=== PATIENT | male | born 1960 | race Caucasian/White ===

== ENCOUNTER 2020-05-24 05:56 | Day surgery (SDC) | payer SELFPAY ==
[2020-05-24] VITALS (11 sets, daily range): BP systolic 94–149; BP diastolic 61–83; PULSE 66–82; RESP 16–18; TEMP 35.8–36.6; O2SAT 91–99; BMI 36.2
[2020-05-24] MEDS: Lactated Ringers 1,000 ML 100 ML IV ×2 (06:43→09:31)
[2020-05-24 07:16] LABS: Bedside Glucose 226 mg/dL (70-110)
[2020-05-24] MEDS: Cefazolin 2 GM in 0.9% Normal Saline 100 ML IV (07:30)
--- NOTE | 2020-05-24 07:30 | RAD_ITS ---
STUDY: X-RAY - RIGHT ANKLE REASON FOR EXAM: ORIF fibular fracture. TECHNIQUE: 7 intraoperative images of the ankle. COMPARISON: None. FINDINGS: There is an intramedullary pin in the distal fibula transfixing a distal fibular diaphyseal fracture in anatomical alignment and position. There is syndesmotic fixation. Electronically Signed: Bharat Phillip MD at 12:39 EDT Tel , Service support , RAD/Ankle 2 Views
--- NOTE | 2020-05-24 10:34 | DCINST_ITS ---
Discharge Diet: Light diet - advance as tolerated Discharge Activity: May Not Drive, May Not Shower, Use Walker, Use Crutches Weight Bearing Status: No weight bearing Keep extremity elevated above heart level: Right Leg Additional Activity Instructions:: 1.) Keep dressing to right leg clean, dry and intact. Do not get dressing wet. Do not remove dressing. If get dressing wet, call office for further instructions. 2.) ice around right knee 30 minutes every hour while awake as needed for pain. 3.) elevate right foot above level of heart as often as possible until further instructed. 4.) begin takin doxycycline (antibiotic) tomorrow, 05/25/20, one pill twice a day as instructed on the bottle. 5.) begin takin aspirin 81mg tomorrow, 05/25/20, one pill twice a day as previously instructed. 6.) begin taking pain medication that was prescribed to you starting today, 05/24/20, as needed and as instructed on the bottle. 7.) no walking/standing/placing and weight on right foot. Use crutches for assistance. 8.) follow up with Dr. Quiroz in one week as previously scheduled Call your doctor if your incision/area has: Increased Pain/ Swelling Call your doctor if you observe: Fever of 101 or Higher, Coldness, Increased Pain, Inability to have a bowel movement, Chest pain, Increased palpitations (irregular heartbeat), Calf discomfort, Uncontrolled pain Cleanse incision/area with: Keep Dressing Clean & Dry Allergies/Adverse Reactions: Allergies No Known Allergies Allergy (Verified 05/18/20 14:45) Medications to take at Discharge Aspirin E.C. [Ecotrin] 162 mg PO DAILY@0800 05/18/20 Atorvastatin Calcium [Lipitor] 80 mg PO QHS 05/18/20 Glipizide 5 mg PO DAILY 05/18/20 Metformin HCl 2,000 mg PO DAILY 05/18/20 Pioglitazone [Actos] 45 mg PO DAILY 05/18/20 Primary Care Physician: Isabella Quiroz MD [Primary Care Provider] - Test Results: Test results from this visit will be discussed in further detail at your follow- up appointment, if applicable. Please Follow Up With: Estrada Quiroz DPM When: in one week as previously scheduled
--- NOTE | 2020-05-24 10:37 | OP.PCM_ITS ---
Problem List (1) Closed right fibular fracture Status: Acute Qualifiers: Encounter type: initial encounter Fibula location: shaft Fracture morphology: transverse Fracture alignment: displaced Qualified Code(s): S82.421A - Displaced transverse fracture of shaft of right fibula, initial encounter for closed fracture (2) Ankle syndesmosis disruption Status: Acute Qualifiers: Encounter type: initial encounter Laterality: right Qualified Code(s): S93.431A - Sprain of tibiofibular ligament of right ankle, initial encounter Report of Operation Date of Procedure: 05/24/20 Pre-Operative Diagnosis: 1.) right fibula shaft fracture, displaced. 2.) right ankle syndesmosis disruption Post-Operative Diagnosis: 1.) right fibula shaft fracture, displaced. 2.) right ankle syndesmosis disruption Surgery/Procedure Performed:: 1.) right fibula open reduction with internal fixation. 2.) right syndesmosis open reduction with internal fixation Description of Surgical Findings:: Consistent with diagnosis. Reduction of deformities achieved and held with internal fixation veterinary assistant: Assist,RN First Type of Anesthesia:: General/Regional - a popliteal and adductor canal block given to right lower extremity pre-operatively Anesthesiologist: Yusuf Aleman Special Medications: 2 grams of ancef given pre-operatively for antibiotic prophylaxis Specimen's removed: None Drains: None Estimated Blood Loss (mL): 15 Description of Procedure: Hemostasis: Pneumatic thigh tourniquet placed at the level of the right thigh at 275 mmHg for 105 minutes Materials: Arthrex right sided fibula nail 3.0 x 180 mm 2. Arthrex 2.7 x 60 mm cortical screw. 3. Arthrex 2.7 x 40 mm cortical screw. 4. Arthrex tight rope. 5. Size 0 Vicryl. 6. Size 2-0 Vicryl. #7 size 3-0 nylon Injectables: None Complications: None Condition: Stable Indications: Patient is a 59-year-old male with past medical history of diabetes mellitus who suffered a right lower extremity injury on May 14, 2020. Patient was at work when a log rolled into his right leg. Patient felt immediate pain after the injury, but did not seek medical attention. Due to the continued pain with weightbearing, patient presented to his chiropractor on May 15, 2020. At that time, x-rays were taken, revealing a fibular fracture and ankle ligamentous injury. Patient was then referred to orthopedics for further evaluation. Patient initially saw VIJAY Jaimes for evaluation. She then referred to me for further evaluation. After reviewing the films, I discussed with the patient that he did have a displaced fibular shaft fracture along with a syndesmosis injury. I discussed these terms in detail along with the nature of his condition. I discussed conservative therapy, the risks and benefits to that. I discussed surgical intervention, including repair of the ligamentous structures and the fibular fracture. I discussed the risks and benefits of surgical intervention, including but not limited to delayed or nonhealing wounds, delayed or nonhealing bone, DVT, infection, decreased function of limb, continued pain, damage to surrounding structures, loss of limb, loss of life. Furthermore, since the patient is a diabetic, he is at a high risk for postoperative complications. All the patient's questions were answered to his satisfaction and all of his concerns were addressed. No guarantees were made as to the outcome of the procedure. Patient understood all aspects of the procedure. Due to the injury that was present, I did recommend surgical intervention. Patient was agreeable to proceed with surgical intervention. Preoperative testing was ordered, and surgery was performed today, May 24, 2020. Operative Report: Before the patient was brought into the operating room, the risks and benefits fo surgical intervention were discussed again. ll the patient's questions were answered to his satisfaction and all of his concerns were addressed. No guarantees were made as to the outcome of the procedure. Patient understood all aspects of the procedure. Before the patient brought to the operating room, the anesthesiologist administered a popliteal and adductor canal block to the right lower extremity. Patient was then brought to the operative room placed on the operating table in supine position. After timeout, once general anesthesia was obtained, 2 g of Ancef was given for preoperative antibiotics. Anesthesia to control the airway and the IV access. All pressure points were adequately padded. Next, well-padded pneumatic thigh tourniquet was placed the level of the right thigh. The right foot, ankle, leg were then scrubbed, prepped, draped in the usual sterile manner. At this time, radiograph evaluation was used to determine the level of the fibular fracture, ankle joint, syndesmosis, and distal lateral malleolus. These were all marked on the patient. Next, the right foot, ankle, leg were then elevated and exsanguinated via Esmarch inflation pneumatic thigh tourniquet was performed to 275 mmHg. Attention was then directed to the lateral aspect of the fibula and the area of the fibular fracture. At this time, a linear longitudinal incision was made approximately 2 cm in length at the level of the fibular fracture. Sharp and blunt dissection was continued down deep to the level of the bone, with the periosteum was reflected off revealing the fibular fracture. Next, a curette along with an dental pick were used to remove any fibrous tissue and hematoma contained within the area. The surgical site was irrigated with copious amounts of normal sterile saline. Next, the fibular fracture was reduced and held via temporary fixation. Radiograph evaluation was then performed. Satisfactory alignment was noted of the fibular fracture. Attention was then directed to the area 1 cm approximately distal to the lateral malleolus. At this time, the K wire for the fibular nail was inserted through t he distal aspect the lateral malleolus of the fibular shaft past the fibular fracture. Once adequate positioning was had of this K wire and confirmed upon radiographic evaluation, appropriate drilling and reaming was performed of the fibular canal. Next, a stab incision was made at the level of the junction with the fibular nail would go distal to the lateral malleolus. The fibular nail was then inserted in standard fashion with care taken to make sure that this was pass the fibular fracture. Once adequate positioning of the nail was had and confirmed on radiographic evaluation, 2 stab incisions were made at the lateral aspect of the lateral malleolus for the 2.7 locking screws. These locking screws were inserted in standard fashion to avoid rotation of the fibular nail. Position of the screws was confirmed upon radiographic evaluation. At this time, the cotton and hook test were performed under live radiographic evaluation. The syndesmosis was deemed unstable at this time. Next, the K wire for the cannulated thyroid system was passed from lateral to medial through the fibula, fibular nail, into the tibia. Positioning of this K wire was confirmed by radiograph evaluation. Once positioning was had, stab incision was made at the level of the K wire skin juncture. Drilling was performed of the fibula and the tibia, and the tight rope was inserted in standard fashion. Once this was fully inserted and confirmed upon radiograph evaluation, the foot was held in a dorsiflexed position and reduction of the tibiofibular distal joint was performed. The tight rope was tightened in appropriate fashion. Once adequate tensioning was had, radiograph evaluation was then performed. An increase in the tibiofibular overlap was noted at this time. Next, live radiograph evaluation was used to perform the stress eversion test to assess the deltoid ligament. The deltoid ligament was deemed stable at this time and repair would not be necessary. Radiograph evaluation was then performed, and the fibular fracture was noted to be reduced when compared to preoperative assessment. The fibular nail was noted to be in adequate position in the medullary canal of the fibula was noted to hold the fibula in the corrected position. An increase in the tibiofibular overlap was noted, and the tight rope was noted to hold the syndesmosis in the corrected reduced position. The fibula appeared out to length at this time. Each surgical site is irrigated copious amounts of irrisept and normal sterile saline. The pneumatic thigh tourniquet was then released and a prompt hyperemic response noted to the entirety of the right lower extremity. The subcutaneous tissues of the surgical sites were reapproximated coapted utilizing size 0 Vicryl and 2-0 Vicryl. The skin of each surgical site was reapproximated coapted utilizing 3-0 nylon in a simple interrupted horizontal mattress fashion. Each surgical site was then dressed with Betadine soaked gauze, and a dry sterile dressing setting of 4 x 4 gauze, ABD pads, wrapped with Kerlix. The right foot and ankle were then wrapped with an Bulmaro bandage. Next, a stockinette was placed over the right lower extremity. Cast padding was wrapped in the metatarsal heads extending proximally to level just distal to the tibial tuberosity. A posterior splint was fashioned to the right lower extremity and was adhered to the right lower extremity utilizing Bulamro bandages. Care was taken make sure that the foot and ankle held in neutral position as the posterior splint dried. Neurovascular status was assessed at the end the application and deemed intact to the right lower extremity. Patient tolerated the anesthesia procedure well and was transported to the PACU vital signs stable neurovascular status intact to the right lower extremity. After period of postoperative monitoring, patient be discharged home with written and oral instructions for wound care and follow-up. - Complications None - Admit VTE Documentation VTE Present on Admission: No - patient to begin ASA 81mg BID on 05/25/20 for DVT prophylaxis VTE Mechan Device Prophylaxis: SCD's
[2020-05-24 11:01] LABS: Bedside Glucose 261 mg/dL (70-110)
--- NOTE | 2020-05-24 11:35 | RAD_ITS ---
STUDY: X-RAY - RIGHT ANKLE REASON FOR EXAM: ORIF right ankle fracture. TECHNIQUE: 3 view(s) of the ankle. COMPARISON: None. FINDINGS: There is an intramedullary pin transfixing a distal fibular diaphyseal fracture in anatomic alignment and position. There is syndesmotic fixation. Normal tibiotalar articulation and ankle mortise. Normal visualized talus and calcaneus. The visualized subtalar, talonavicular, calcaneocuboid and tarsal articulations are normal. There is an overlying cast. RAD/Ankle min 3 Views IMPRESSION: ORIF of distal fibular fracture and syndesmotic fixation. Electronically Signed: Bharat Phillip MD at 12:38 EDT Tel , Service support ,
--- NOTE | 2020-05-24 11:35 | RAD_ITS ---
STUDY: X-RAY - RIGHT TIBIA AND FIBULA REASON FOR EXAM: Status post ORIF right ankle fracture. TECHNIQUE: 2 view(s) of the tibia and fibula were obtained. COMPARISON: None. FINDINGS: There is a chronic appearing corticated osseous fragment at the lateral aspect of the tibial plateau, a suspected Segond fracture. There is an intramedullary pin transfixing a distal fibular diaphyseal fracture in anatomical alignment and position. There is a minimally displaced fracture of the proximal fibular diaphysis. There is soft tissue swelling. RAD/Tibia & Fibula 2 Views IMPRESSION: Intramedullary pin transfixing a distal fibular diaphyseal fracture and minimally displaced proximal fibular diaphyseal fracture. Suspected chronic Segond fracture. Electronically Signed: Bharat Phillip MD at 12:38 EDT Tel , Service support ,
[2020-05-24] MEDS: Insulin Lispro 100 UNIT/ML INSULN.PEN SC (11:56)
[2020-05-24 12:30] LABS: Bedside Glucose 232 mg/dL (70-110)
== END 2020-05-24 13:58 | disposition home or self-care (01) ==
LOC: SDC 06:03 → AC 06:03
PROVIDERS: PCP Family Medicine; Referring Provider Podiatrist Foot & Ankle Surgery; Visit Provider Podiatrist Foot & Ankle Surgery
PROC: (CPT 27792; principal; 2020-05-24 07:10)
DX: S82.431A Displaced oblique fracture of shaft of right fibula, initial encounter for closed fracture (principal); S93.431A Sprain of tibiofibular ligament of right ankle, initial encounter; S82.864A Nondisplaced Maisonneuve's fracture of right leg, initial encounter for closed fracture; S82.831A Other fracture of upper and lower end of right fibula, initial encounter for closed fracture; E11.9 Type 2 diabetes mellitus without complications; E66.9 Obesity, unspecified; R03.0 Elevated blood-pressure reading, without diagnosis of hypertension; G89.11 Acute pain due to trauma; W20.8XXA Other cause of strike by thrown, projected or falling object, initial encounter; Y93.89 Activity, other specified; Y92.89 Other specified places as the place of occurrence of the external cause; Y99.0 Civilian activity done for income or pay; Z68.34 Body mass index [BMI] 34.0-34.9, adult
CPT/HCPCS: 01480; 27792; 73590; 73600; 73610; 76000; 82962; 87426; C1713; C9803; J7120; J2405